=== PATIENT | male | born 1965 | race Caucasian/White ===

== ENCOUNTER 2019-12-04 18:59 | Emergency (ER) | payer SELFPAY ==
[2019-12-04 19:01] VITALS: BP 142/76; PULSE 101; PULSE 98; RESP 17; RESP 18; TEMP 36.6; O2SAT 94; O2SAT 95; BMI 27.7
--- NOTE | 2019-12-04 20:28 | RAD_ITS ---
STUDY: X-RAY - RIGHT FOOT CLINICAL: Male, 54 years old. Swelling x4 days. Patient believes to be have bitten by a spider. TECHNIQUE: 3 view(s) of the foot. COMPARISON: None. FINDINGS: Normal talus, calcaneus, and tarsal bones. Normal visualized subtalar, talonavicular, calcaneocuboid, tarsal and tarsometatarsal articulations. Normal metatarsi. Degenerative changes of the metatarsophalangeal joint of the great toe. Normal tibial and fibular sesamoid bones. Normal interphalangeal joint of the great toe. Normal phalanges of the great toe. Normal second through fifth metatarsophalangeal joints. Normal interphalangeal joints and phalanges of the lesser toes. Nonspecific soft tissue swelling.. RAD/Foot min 3 Views IMPRESSION: Nonspecific soft tissue swelling. No evidence for acute fracture or acute osteomyelitis Electronically Signed: Chad Olson MD at 21:35 EDT , Service support ,
--- NOTE | 2019-12-04 20:29 | ED.VIS.GEN ---
History of Present Illness Chief Complaint: Cellulitis Informant: Patient Onset: Days Context: Gradual Onset Current Severity: Moderate Maximum Severity: Moderate Narrative: Patient present secondary to cellulitis of his right foot and ankle. He reports being bitten by a spider on the right ankle 4 days ago. He states 2 days later it was looking pretty good. Since that time it is now become more swollen and increased redness. He denies fever but has had some chills. - Past Medical History (1) Gastric ulcer Status: Chronic (2) Anxiety Status: Chronic Past Medical History - Allergies and Home Meds Allergies/Adverse Reactions: Allergies diazepam [From Valium] Adverse Reaction (Verified 12/04/19 19:00) Upset Stomach Primary Care Physician: Dagoberto Wilkinson DO [Primary Care Provider] - Prior records reviewed: Yes Surgical History: - - circumcision at age 18 Smoking Status: Current every day smoker - Family History Maternal Family History: Reports: No pertinent history Review of Systems General: Reports: Chills. Denies: Fever Eyes: Denies: Visual changes - bilaterally ENT: Denies: Bilateral ear pain Cardiovascular: Denies: Chest pain Respiratory: Denies: Dyspnea, Cough Gastrointestinal: Denies: Abdominal pain, Nausea, Vomiting, Diarrhea Musculoskeletal: Reports: Swelling, Extremity Pain Skin: Reports: Wounds Neurological: Denies: Headache Hematologic: Denies: Easy bruising, Easy bleeding Allergy: Denies: Uticaria Physical Exam Vital Signs/Narrative: Vital Signs Temp Pulse Resp BP Pulse Ox 12/04/19 19:01 97.9 F 101 H 18 142/76 H 95 Inital Vital Signs reviewed: Yes General: Well nourished, Well developed Head: Normocephalic ENT: Moist mucous membranes Neck: Supple Cardiovascular: Regular rate, Regular rhythm Respiratory: No distress, CTA bilaterally Abdomen: Soft, Nontender Extremities: - - Erythema and edema of the right foot and ankle. No definitive wounds or bite greene are noted. He does have lymphangitic streak up the medial right lower leg. Neurological: Alert, Oriented x3 Psychological: Normal affect Diagnostic/Tx/Re-eval Impressions Foot X-Ray 12/04/19 20:28 IMPRESSION: Nonspecific soft tissue swelling. No evidence for acute fracture or acute osteomyelitis Electronically Signed: Chad Olson MD at 21:35 EDT , Service support , Ankle X-Ray 12/04/19 21:04 IMPRESSION: Lateral malleolus sprain. No acute fracture or dislocation Electronically Signed: Chad Olson MD at 21:34 EDT , Service support , 12/04/19 20:28 Foot min 3 Views [RAD] Stat 12/04/19 21:04 Ankle min 3 Views [RAD] Stat Laboratory Results 12/04/19 12/04/19 12/04/19 20:33 20:33 20:33 WBC 8.5 RBC 4.81 Hgb 13.3 Hct 42.0 MCV 87.3 MCH 27.7 MCHC 31.7 L RDW Std Deviation 45.7 H RDW Coeff of Juanito 14.4 Plt Count 181 MPV 9.2 Immature Gran % (Auto) 0.200 Neut % (Auto) 58.2 Lymph % (Auto) 30.5 [place] % (Auto) 9.6 Eos % (Auto) 1.3 Baso % (Auto) 0.2 Absolute Neuts (auto) 4.9 Absolute Lymphs (auto) 2.59 Nucleated RBC % 0 Sodium 138 Potassium 4.1 Chloride 103 Carbon Dioxide 32.0 Anion Gap 3 L BUN 13 Creatinine 1.01 Estim Creat Clear Calc 88.34 Est GFR (MDRD) Af Amer 100 Est GFR (MDRD) Non-Af 82 BUN/Creatinine Ratio 12.9 Glucose 86 Lactic Acid 0.7 Calcium 8.9 - Medical Decision Making Patient is given a dose of Zosyn and vancomycin here. On repeat evaluation erythema is mildly improved. Because the patient's labs are completely normal, we discussed the possibility of trying outpatient therapy. He would prefer this. Area of erythema is outlined with a surgical marker and Gust[place] wrap is applied. He will be treated with Bactrim and Keflex. He was advised if the erythema spreads beyond the outline or if he develops fever he needs to return immediately for IV antibiotics. He voices understanding and agreement. ED Disposition - Plan for ED Patient: Disposition: Home or Assisted Living Diagnosis: Cellulitis Instructions: Cellulitis Prescriptions: Smz/Tmp Ds [Bactrim Ds] 1 tab PO BID #20 tab Transmission Status: Pending to [facility] Cephalexin [Keflex] 500 mg PO Q6 #40 cap Transmission Status: Pending to [facility] Referrals: Dagoberto Wilkinson DO [Primary Care Provider] - 1 Week
[2019-12-04 20:46] LABS: Absolute Lymphocyte Count 2.59 X10^3/uL (0.83-4.51); Absolute Neutrophil Count 4.9 X10^3/uL (2.0-7.7); Basophil# 0.02 X10^3/uL; Basophil% 0.2 % (0-1); Eosinophil# 0.11 X10^3/uL; Eosinophils% 1.3 % (0-5); Hemoglobin 13.3 g/dL (13.0-16.5); Lymphocyte # 2.59 X10^3/ul (4.0); Lymphocyte % 30.5 % (19-41); Mean Corp Hgb Conc 31.7 g/dL (32-36); Mean Corpuscular Hgb 27.7 pg (27.0-32.0); Mean Corpuscular Volume 87.3 fL (80-94); Mean Platelet Vol. 9.2 fl (6.2-12.0); Monocyte# 0.82 X10^3/uL; Monocyte% 9.6 % (0-10); NRBC Flagged by Analyzer 0 % (0-5); Neutrophil # 4.94 X10^3/uL (2.7-7.7); Neutrophil % 58.2 % (47-70); Platelet Count 181 K/mm3 (150-450); RBC Distribution Width CV 14.4 % (11.6-14.6); RBC Distribution Width SD 45.7 fl (35.1-43.9); Red Blood Count 4.81 M/mm3 (4.6-6.2); White Blood Count 8.5 K/mm3 (4.4-11.0)
[2019-12-04 21:01] LABS: Anion Gap 3 (5-15); BUN 13 mg/dL (7-18); BUN/Creat Ratio 12.9 RATIO (10-20); Calcium,Total 8.9 mg/dL (8.5-10.1); Chloride 103 mmol/L (98-107); Creatinine, Serum 1.01 mg/dL (0.70-1.30); EST Glomerular Filtration Rate 82 mL/min (>60); Est Glom Filt Rate - Afr Amer 100 mL/min (>60); Estimated Creatinine Clearance 88.34 ml/min; Glucose 86 mg/dL (74-106); Potassium 4.1 mmol/L (3.5-5.1); Sodium Level 138 mmol/L (136-145)
--- NOTE | 2019-12-04 21:04 | RAD_ITS ---
STUDY: X-RAY - RIGHT ANKLE REASON FOR EXAM: Male, 54 years old. Swelling x4 days. Patient believes to be have bitten by a spider. TECHNIQUE: 3 view(s) of the ankle. COMPARISON: None. FINDINGS: Normal visualized distal tibia and fibula. Normal medial and lateral malleoli. Normal tibiotalar articulation and ankle mortise. Normal visualized talus and calcaneus. The visualized subtalar, talonavicular, calcaneocuboid and tarsal articulations are normal. Soft tissue swelling overlying the lateral malleolus RAD/Ankle min 3 Views IMPRESSION: Lateral malleolus sprain. No acute fracture or dislocation Electronically Signed: Chad Olson MD at 21:34 EDT , Service support ,
[2019-12-04] MEDS: 0.9% Normal Saline 1,000 ML 150 ML IV (21:12)
[2019-12-04 21:25] VITALS: BP 130/79; PULSE 100; RESP 16; TEMP 36.8; O2SAT 97
[2019-12-04 21:30] LABS: Lactic Acid 0.7 mmol/L (0.4-1.9)
[2019-12-05] VITALS: BP 128/73; RESP 16; TEMP 36.9; O2SAT 98
== END 2019-12-05 00:16 | disposition home or self-care (01) ==
PROVIDERS: Emergency Provider Emergency Medicine; PCP Family Medicine
DX: L03.115 Cellulitis of right lower limb (principal); F41.9 Anxiety disorder, unspecified; Z79.899 Other long term (current) drug therapy; F17.200 Nicotine dependence, unspecified, uncomplicated
CPT/HCPCS: 73610; 73630; 80048; 83605; 85025; 87040; 96361; 96365; 96367; 99283; J7030